=== PATIENT | male | born 1970 | race Caucasian/White ===

== ENCOUNTER 2016-04-14 14:29 | Emergency (ER) | payer BC ==
[~2016-04-14] VITALS: Ht 182.9 cm; Wt 89.4 kg
[~2016-04-14 14:29] MED LIST: DELTASONE50 MG PO; ENDOCET 5-3251 EACH PO; FLEXERIL PO; FLEXERIL10 MG PO; FOLIC ACID0.8 MG PO; MEDROL DOSEPAK4 MG PO; MOTRIN800 MG PO; NAPROSYN500 MG PO; PURINETHOL50 MG PO; PriLOSEC PO; REMICADE10 MG/ML IV; VALTREX50 MG/ML PO
[2016-04-14 15:34] LABS: TROP-I INTERPRETATION NEGATIVE; TROPONIN-I < 0.01 ng/mL (0.0-0.30)
[2016-04-14 15:38] LABS: CHLORIDE 103 mEq/L (99-109); POTASSIUM 3.4 mEq/L (3.7-5.4); SODIUM 136 mEq/L (136-147)
[2016-04-14 15:40] LABS: GLUCOSE 104 mg/dL (70-99)
[2016-04-14 15:41] LABS: ANION GAP 11 MEQ/L (2-14)
[2016-04-14 15:44] LABS: GFR ESTIMATE (CALCULATED) > 59 mL/min/
[2016-04-14 15:45] LABS: UREA NITROGEN (BUN) 8 mg/dL (9-23)
[2016-04-14 16:19] LABS: MCH 33.4 PG (29.0-34.0); MCHC 36.5 G/DL (30.0-36.0); MCV 91.5 FL (86-99); MEAN PLAT.VOLUME 10.5 uM^3 (9.0-12.4); PLATELET COUNT 189 K/uL (156-360); RBC DIS.WIDTH-CV 13.5 % (11.8-14.6); RED BLOOD COUNT 4.37 M/uL (4.00-5.50); WHITE BLOOD COUNT 8.1 K/uL (4.1-10.2)
[2016-04-14 18:27] LABS: TOTAL BILIRUBIN 1.1 mg/dL (0.0-1.0)
[2016-04-14 18:28] LABS: ALKALINE PHOSPHATASE 85 IU/L (3-129)
[2016-04-14 18:31] LABS: DIRECT BILIRUBIN 0.4 mg/dL (0.0-0.3)
[2016-04-14 18:32] LABS: LIPASE 34 U/L (1.0-51.0)
[2016-04-14 19:19] LABS: TROP-I INTERPRETATION NEGATIVE; TROPONIN-I < 0.01 ng/mL (0.0-0.30)
[2016-04-14] MEDS ORDERED: NORCO 10/3251 TABLET PO (20:03)
[2016-04-14] MEDS ORDERED: MOTRIN800 MG PO (20:03)
[2016-04-14 20:28] VITALS: BP 118/75
== END 2016-04-14 20:37 | disposition home or self-care (01) ==
LOC: EME 14:29
PROVIDERS: Physician Assistant
DX: R07.89 Other chest pain (principal); K80.20 Calculus of gallbladder without cholecystitis without obstruction
CPT/HCPCS: 70496; 70498; 71020; 71275; 80048; 80076; 83690; 84484; 85027; 93005; 99281; 99285; J1170; J7050

== ENCOUNTER 2017-06-20 05:02 | Emergency (ER) | payer BC ==
[~2017-06-20] VITALS: Ht 182.9 cm; Wt 89.5 kg
[~2017-06-20 05:02] MED LIST changes: +NORCO 10/3251 TABLET PO
[2017-06-20] MEDS ORDERED: MEDROL DOSEPAK4 MG PO (05:21)
[2017-06-20] MEDS ORDERED: PERCOCET 5/31 TABLET PO (05:21)
[2017-06-20] MEDS ORDERED: VALIUM5 MG PO (05:21)
[2017-06-20 05:42] VITALS: BP 147/84
== END 2017-06-20 05:43 | disposition home or self-care (01) ==
LOC: EME 05:02
DX: M54.5 Low back pain (principal); M54.16 Radiculopathy, lumbar region; K50.90 Crohn's disease, unspecified, without complications
CPT/HCPCS: 99281; 99283; J7512